=== PATIENT | male | born 1940 | race Caucasian/White ===

== ENCOUNTER 2020-06-21 22:51 | Emergency (ER) | payer MEDICARE, OTHER ==
--- NOTE | 2020-06-21 23:28 | EDM.PDOC ---
ED HPI GENERAL MEDICAL PROBLEM - General Stated Complaint: OBJECT IN EAR Time Seen by Provider: 06/21/20 23:15 Source of Information: Reports: Patient History Limitations: Reports: No Limitations - History of Present Illness INITIAL COMMENTS - FREE TEXT/NARRATIVE: c/o foreign body in R ear canal pt removed hearing aid on R side and noticed that the black rubber tip was missing, he thinks that it is in his ear canal - Related Data Allergies Allergy/AdvReac Type Severity Reaction Status Date / Time fluticasone propionate Allergy Bleeding Verified 02/14/16 08:54 [From Flonase] levofloxacin [From Levaquin] Allergy Airway Verified 02/14/16 08:54 Tightness lisinopril Allergy Airway Verified 02/14/16 08:54 Tightness simvastatin Allergy Muscle Verified 02/14/16 08:54 Aches Home Meds: Home Meds Aspirin [Low Dose Aspirin EC] 81 mg PO DAILY 08/31/15 [History] Carboxymethylcellulose Sodium [Refresh Celluvisc] 1 drop EYEBOTH BID 08/31/15 [History] Clopidogrel [Plavix] 75 mg PO DAILY 08/31/15 [History] Gabapentin [Neurontin] 300 mg PO TID 08/31/15 [History] Losartan [Cozaar] 50 mg PO DAILY 08/31/15 [History] Metoprolol Succinate [Toprol Xl] 150 mg PO DAILY 08/31/15 [History] Multivitamin [Multiple Vitamins] 1 tab PO DAILY 08/31/15 [History] Niacin [Niacin ER] 1,000 mg PO BID 08/31/15 [History] Nitroglycerin [Nitrostat] 1 tab SL ASDIRECTED PRN 08/31/15 [History] Pravastatin [Pravachol] 80 mg PO BEDTIME 08/31/15 [History] Prochlorperazine Maleate [Compazine] 10 mg PO Q6HR PRN 08/31/15 [History] amLODIPine [Norvasc] 5 mg PO DAILY 08/31/15 [History] metFORMIN [Glucophage] 850 mg PO BID 08/31/15 [History] Past Medical History HEENT History: Reports: Impaired Vision, Other (See Below) Other HEENT History: hard of hearing- uses hearing aid Cardiovascular History: Reports: High Cholesterol Respiratory History: Reports: Other (See Below) Other Respiratory History: lung cancer 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 last done last year. Oncologic (Cancer) History: Reports: Lung, Other (See Below) Other Oncologic History: kidney - Past Surgical History Cardiovascular Surgical History: Reports: Coronary Artery Stent, Other (See Below) Social & Family History - Family History Family Medical History: Noncontributory ED ROS ENT - Review of Systems Review Of Systems: See Below Constitutional: Reports: No Symptoms HEENT: Reports: No Symptoms Respiratory: Reports: No Symptoms Endocrine: Reports: No Symptoms GI/Abdominal: Reports: No Symptoms : Reports: No Symptoms Musculoskeletal: Reports: No Symptoms Skin: Reports: No Symptoms Neurological: Reports: No Symptoms Psychiatric: Reports: No Symptoms Hematologic/Lymphatic: Reports: No Symptoms Immunologic: Reports: No Symptoms ED EXAM, ENT - Physical Exam Exam: See Below Exam Limited By: No Limitations General Appearance: Alert, WD/WN, No Apparent Distress Ears: Normal External Exam, Normal Canal, Normal TMs, Other (there is the smallest amount of soft jefferson wax in the canal, canal is otherwise widely patent without a foreign body) Course - Re-Assessments/Exams Free Text/Narrative Re-Assessment/Exam: 06/21/20 23:38 there is no fb in canal, a small amount of wax was removed Departure - Departure Time of Disposition: 23:45 Disposition: Home, Self-Care 01 Condition: Good Clinical Impression: Hearing difficulty of right ear - Discharge Information *PRESCRIPTION DRUG MONITORING PROGRAM REVIEWED*: Not Applicable *COPY OF PRESCRIPTION DRUG MONITORING REPORT IN PATIENT EBONI: Not Applicable Referrals: Sam Rosario MD [Primary Care Provider] - Additional Instructions: The right ear canal is patent without a foreign body present. The right tympanic membrane is within normal limits. See your marketing lead as needed.
[2020-06-22 03:59] VITALS: BP 138/73; PULSE 78
== END 2020-06-21 23:45 | disposition home or self-care (01) ==
LOC: FB.ED 22:51
DX: H61.21 Impacted cerumen, right ear (principal); E78.00 Pure hypercholesterolemia, unspecified; Z88.8 Allergy status to other drugs, medicaments and biological substances; Z88.1 Allergy status to other antibiotic agents; Z79.82 Long term (current) use of aspirin; Z79.899 Other long term (current) drug therapy; Z79.02 Long term (current) use of antithrombotics/antiplatelets; Z95.5 Presence of coronary angioplasty implant and graft
CPT/HCPCS: 99282